=== PATIENT | male | born 1955 | race Caucasian/White ===

== ENCOUNTER 2020-10-10 18:36 | Emergency (ER) | payer MEDICARE ==
[2020-10-10] MEDS ORDERED: Ondansetron 4 MG Tab.DIS PO ONE (18:37)
--- NOTE | 2020-10-10 19:19 | CT ---
PROCEDURE INFORMATION: Exam: CT Head Without Contrast Exam date and time: 10/10/2020 7:08 PM Age: 64 years old Clinical indication: Other: Vomiting, mouth droop TECHNIQUE: Imaging protocol: Computed tomography of the head without contrast. Radiation optimization: All CT scans at this facility use at least one of these dose optimization techniques: automated exposure control; mA and/or kV adjustment per patient size (includes targeted exams where dose is matched to clinical indication); or iterative reconstruction. Other technique: STROKE PROTOCOL was implemented. COMPARISON: No relevant prior studies available. FINDINGS: Brain: There is moderate amount of scattered areas of hypoattenuation of the supratentorial white matter, most likely secondary to microvascular ischemic changes. No acute intracranial hemorrhage. Old infarcts centered in left caudate nucleus extending down into the lentiform nucleus. Likely associated Wallerian degenerative changes extending into the left midbrain and antony. Cerebral ventricles: No ventriculomegaly. Bones/joints: Unremarkable. No acute fracture. Paranasal sinuses: Visualized sinuses are unremarkable. No fluid levels. Mastoid air cells: Visualized mastoid air cells are well aerated. Soft tissues: Unremarkable. IMPRESSION: No acute intracranial process. ASSESSMENT: ASPECTS ([place] Stroke Program Early CT Score) is 10.
[2020-10-10 19:56] LABS: ANION GAP 13.8 mEq/L (7-13); CHLORIDE,CL 102 mmol/L (98-107); SODIUM,NA 138 mmol/L (136-145)
[2020-10-10 20:56] LABS: CORONAVIRUS COVID-19 NAA NEGATIVE (NEGATIVE)
--- NOTE | 2020-10-10 21:19 | EDM.PDOC ---
ED HPI GENERAL MEDICAL PROBLEM - General Chief Complaint: Neurological Problem Stated Complaint: LEFT SIDE OF FACE, NECK AND HAND. FALLING Time Seen by Provider: 10/10/20 20:50 Source of Information: Reports: Patient, Family History Limitations: Reports: No Limitations - History of Present Illness INITIAL COMMENTS - FREE TEXT/NARRATIVE: This 64 yo male patient was brought to the ED by his family due to left sided upper lip numbness, left arm numbness and coordination problems. The patient reports his symptoms started at 1100 today. The patient reports the numbness has been getting better, but he has been having more difficulties ambulating this evening. The patient did have a CVA in May (diagnosed in [place]), so he does have right sided facial droop and right lower extremity coordination difficulties. The patient normally walks with a walker due to the CVA in May. While family was getting the patient into the ED, the patient felt nauseated and vomited x1. The patient denies any recent falls or head trauma. Onset: Today Onset Date: 10/10/20 Onset Time: 11:00 Duration: Constant, Improving Location: Reports: Head, Upper Extremity, Left Quality: Reports: Other Severity: Moderate Improves with: Reports: None Worsens with: Reports: None Context: Reports: Other Associated Symptoms: Reports: No Other Symptoms - Related Data Allergies Allergy/AdvReac Type Severity Reaction Status Date / Time Tetanus Vaccines and Toxoid Allergy throat Verified 10/10/20 19:18 swelling Home Meds: Home Meds Aspirin 325 mg PO DAILY 10/10/20 [History] Losartan [Cozaar] 50 mg PO BID 10/10/20 [History] Pioglitazone [Actos] 15 mg PO DAILY 10/10/20 [History] amLODIPine Besylate [Amlodipine Besylate] 10 mg PO DAILY 10/10/20 [History] atorvaSTATin [Lipitor] 40 mg PO BEDTIME 10/10/20 [History] carvediloL [Carvedilol] 6.25 mg PO BID 10/10/20 [History] glipiZIDE [Glipizide ER] 5 mg PO DAILY 10/10/20 [History] Past Medical History Cardiovascular History: Reports: High Cholesterol, Hypertension Musculoskeletal History: Reports: Other (See Below) Other Musculoskeletal History: chronic knee problems, needs replacement Neurological History: Reports: CVA, Speech Problems, Other (See Below) Other Neuro History: 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 In physical therapy Endocrine/Metabolic History: Reports: Diabetes, Type II Social & Family History - Tobacco Use Tobacco Use Status *Q: Never Tobacco User Second Hand Smoke Exposure: No - Caffeine Use Caffeine Use: Reports: Soda - Recreational Drug Use Recreational Drug Use: No ED ROS GENERAL - Review of Systems Review Of Systems: Comprehensive ROS is negative, except as noted in HPI. ED EXAM, NEURO - Physical Exam Exam: See Below Exam Limited By: No Limitations General Appearance: Alert, WD/WN, Mild Distress Eye Exam: Bilateral Eye: EOMI, Normal Inspection, PERRL Ears: Normal External Exam, Normal Canal, Hearing Grossly Normal, Normal TMs Nose: Normal Inspection, Normal Mucosa, No Blood Throat/Mouth: Normal Inspection, Normal Lips, Normal Teeth, Normal Gums, Normal Oropharynx, Normal Voice, No Airway Compromise Head Exam: Atraumatic, Normocephalic, Other (Right sided facial droop (present since previous CVA in May)) Neck: Normal Inspection, Supple, Non-Tender, Full Range of Motion Respiratory/Chest: No Respiratory Distress, Lungs Clear, Normal Breath Sounds, No Accessory Muscle Use, Chest Non-Tender Cardiovascular: Normal Peripheral Pulses, Regular Rate, Rhythm, No Edema, No Ga llop, No JVD, No Murmur, No Rub GI/Abdominal: Normal Bowel Sounds, Soft, Non-Tender, No Organomegaly, No Distention, No Abnormal Bruit, No Mass (Male) Exam: Deferred Rectal (Males) Exam: Deferred Neurological: Alert, Normal Mood/Affect, Normal Dorsiflexion, CN II-XII Intact, Normal Plantar Flexion, Normal Gait, Normal Reflexes, No Motor/Sensory Deficits, Oriented x 3 Back Exam: Normal Inspection, Full Range of Motion, NT Extremities: Normal Inspection, Normal Range of Motion, Non-Tender, No Pedal Edema, Normal Capillary Refill, Other (increased difficulties ambulating ) Psychiatric: Normal Affect, Normal Mood Skin Exam: Warm, Dry, Intact, Normal Color, No Rash Course - Vital Signs Last Recorded V/S: Last Vital Signs Temp 35.7 C L 10/10/20 19:00 Pulse 80 10/10/20 19:00 Resp 11 L 10/10/20 19:00 BP 157/80 H 10/10/20 19:00 Pulse Ox 95 01/13/21 19:00 - Orders/Labs/Meds Orders: Active Orders 24 hr Category Date Time Status EKG Documentation Completion [RC] STAT Care 10/10/20 19:11 Active CULTURE BLOOD [BC] Stat Lab 10/10/20 19:18 Received UA RFX MADI AND CULT IF INDIC [URIN] Urgent Lab 10/10/20 19:11 Ordered Labs: Laboratory Tests 10/10/20 10/10/20 10/10/20 Range/Units 19:18 19:18 19:18 WBC 6.7 (5.0-10.0) 10^3/uL RBC 4.40 L (4.6-6.2) 10^6/uL Hgb 14.1 (14.0-18.0) g/dL Hct 38.4 L (40.0-54.0) % MCV 87.3 (80-100) fL MCH 32.0 (27.0-34.0) pg MCHC 36.7 H (33.0-35.0) g/dL Plt Count 196 (150-450) 10^3/uL Neut % (Auto) 76.4 H (42.2-75.2) % Lymph % (Auto) 16.2 L (20.5-50.1) % [place] % (Auto) 5.5 (2-8) % Eos % (Auto) 1.5 (1.0-3.0) % Baso % (Auto) 0.4 (0.0-1.0) % Sodium 138 (136-145) mmol/L Potassium 3.8 (3.5-5.1) mmol/L Chloride 102 (98-107) mmol/L Carbon Dioxide 26 (21-32) mmol/L Anion Gap 13.8 H (7-13) mEq/L BUN 25 H (7-18) mg/dL Creatinine 1.33 H (0.70-1.30) mg/dL Est Cr Clr Drug Dosing 60.78 mL/min Estimated GFR (MDRD) 54 BUN/Creatinine Ratio 18.8 (No establ ref range) Glucose 210 H (74-99) mg/dL Lactic Acid 1.1 (0.4-2.0) mmol/L Calcium 8.9 (8.5-10.1) mg/dL Total Bilirubin 1.0 (0.2-1.0) mg/dL AST 24 (15-37) U/L ALT 46 (16-63) U/L Alkaline Phosphatase 56 (46-116) U/L Troponin I < 0.017 (0.000-0.056) ng/mL Total Protein 7.5 (6.4-8.2) g/dL Albumin 4.0 (3.4-5.0) g/dL Globulin 3.5 Albumin/Globulin Ratio 1.1 Influenza Type A RNA (NEGATIVE) Influenza Type B RNA (NEGATIVE) SARS-CoV-2 RNA (MANUEL) (NEGATIVE) 10/10/20 Range/Units 20:05 WBC (5.0-10.0) 10^3/uL RBC (4.6-6.2) 10^6/uL Hgb (14.0-18.0) g/dL Hct (40.0-54.0) % MCV (80-100) fL MCH (27.0-34.0) pg MCHC (33.0-35.0) g/dL Plt Count (150-450) 10^3/uL Neut % (Auto) (42.2-75.2) % Lymph % (Auto) (20.5-50.1) % [place] % (Auto) (2-8) % Eos % (Auto) (1.0-3.0) % Baso % (Auto) (0.0-1.0) % Sodium (136-145) mmol/L Potassium (3.5-5.1) mmol/L Chloride (98-107) mmol/L Carbon Dioxide (21-32) mmol/L Anion Gap (7-13) mEq/L BUN (7-18) mg/dL Creatinine (0.70-1.30) mg/dL Est Cr Clr Drug Dosing mL/min Estimated GFR (MDRD) BUN/Creatinine Ratio (No establ ref range) Glucose (74-99) mg/dL Lactic Acid (0.4-2.0) mmol/L Calcium (8.5-10.1) mg/dL Total Bilirubin (0.2-1.0) mg/dL AST (15-37) U/L ALT (16-63) U/L Alkaline Phosphatase (46-116) U/L Troponin I (0.000-0.056) ng/mL Total Protein (6.4-8.2) g/dL Albumin (3.4-5.0) g/dL Globulin Albumin/Globulin Ratio Influenza Type A RNA Negative (NEGATIVE) Influenza Type B RNA Negative (NEGATIVE) SARS-CoV-2 RNA (MANUEL) Negative (NEGATIVE) Meds: Medications Discontinued Medications Generic Name Dose Route Start Last Admin Trade Name Vitorq PRN Reason Stop Dose Admin Iopamidol 100 ml 10/10/20 21:10 Isovue-300 (61%) IVPUSH 10/10/20 21:11 ONETIME ONE - Re-Assessments/Exams Free Text/Narrative Re-Assessment/Exam: 10/10/20 22:14 The patient and his daughter were advised of the examination, lab and CT results during the visit. The patient declined transfer to neurology or admission to the hospital for continued evaluation. Departure - Departure Time of Disposition: 22:18 Disposition: Home, Self-Care 01 Condition: Fair Clinical Impression: Left-sided weakness - Discharge Information *PRESCRIPTION DRUG MONITORING PROGRAM REVIEWED*: Not Applicable *COPY OF PRESCRIPTION DRUG MONITORING REPORT IN PATIENT RONNIE: Not Applicable Forms: ED Department Discharge Care Plan Goals: The patient and his daughter were advised of the examination, lab and CT results during the visit. The patient declined transfer to neurology or admission to the hospital for continued evaluation. The patient was discharged with Zofran ODT (4 mg) #4 to take 1 by mouth every 6 hours as needed for nausea. If the patient has any additional symptoms or concerns, the patient should either return to the emergency department or visit his primary care facility. Sepsis Event Note (ED) - Evaluation Sepsis Screening Result: No Definite Risk - Focused Exam Vital Signs: Vital Signs Temp Pulse Resp BP Pulse Ox 10/10/20 19:00 35.7 C L 80 11 L 157/80 H 95 - My Orders Last 24 Hours: My Active Orders 10/10/20 19:11 EKG Documentation Completion [RC] STAT UA RFX MADI AND CULT IF INDIC [URIN] Urgent 10/10/20 19:18 CULTURE BLOOD [BC] Stat - Assessment/Plan Last 24 Hours: My Active Orders 10/10/20 19:11 EKG Documentation Completion [RC] STAT UA RFX MADI AND CULT IF INDIC [URIN] Urgent 10/10/20 19:18 CULTURE BLOOD [BC] Stat
[2020-10-10] MEDS: Iopamidol 612 MG/ML 100 ML Bottle IVPUSH ONE (21:20)
--- NOTE | 2020-10-10 22:09 | CT ---
PROCEDURE INFORMATION: Exam: CT Head With Contrast Exam date and time: 10/10/2020 9:20 PM Age: 64 years old Clinical indication: Other: Left sided weakness (balance and coordination); Additional info: Left sided weakness (balance and coordination) TECHNIQUE: Imaging protocol: Computed tomography of the head with intravenous contrast. Radiation optimization: All CT scans at this facility use at least one of these dose optimization techniques: automated exposure control; mA and/or kV adjustment per patient size (includes targeted exams where dose is matched to clinical indication); or iterative reconstruction. Contrast material: ISOVUE 300; Contrast volume: 50 ml; Contrast route: INTRAVENOUS (IV); COMPARISON: CT Head wo Cont 10/10/2020 7:08 PM FINDINGS: Brain: Chronic left basal ganglia infarct or hemorrhage. There is no intracranial mass effect or midline shift. There is no sign of acute intracranial hemorrhage or cerebral edema. Cerebral ventricles: The ventricles and cortical sulci are normal in caliber. Bones/joints: Skull base and overlying calvarium are intact. No lytic or osteosclerotic lesions. Paranasal sinuses: Visualized sinuses are unremarkable. No fluid levels. Mastoid air cells: Visualized mastoid air cells are well aerated. Soft tissues: Unremarkable. IMPRESSION: 1. No acute intracranial abnormality. 2. Chronic left basal ganglia infarct or hemorrhage. 3. No significant interval change when compared to the CT Head wo Cont 10/10/2020 7:08 PM.
[2020-10-10] MEDS ORDERED: Ondansetron 4 MG Tab.DIS ONE (22:22)
[2020-10-17] MEDS: Iopamidol 612 MG/ML 100 ML Bottle IVPUSH ONE (08:51)
== END 2020-10-10 22:30 | disposition home or self-care (01) ==
LOC: DL.ED 18:36
DX: I69.354 Hemiplegia and hemiparesis following cerebral infarction affecting left non-dominant side (principal); I10 Essential (primary) hypertension; E78.00 Pure hypercholesterolemia, unspecified; E11.9 Type 2 diabetes mellitus without complications; Z20.822 Contact with and (suspected) exposure to COVID-19; Z88.7 Allergy status to serum and vaccine; Z79.84 Long term (current) use of oral hypoglycemic drugs; Z79.899 Other long term (current) drug therapy
CPT/HCPCS: 0240U; 36415; 70450; 70460; 80053; 83605; 84484; 85025; 87040; 93005; 99283; 99285-25; A9270-GY; Q9967

== ENCOUNTER 2020-10-11 16:39 | Emergency (ER) | payer MEDICARE ==
--- NOTE | 2020-10-11 15:59 | EDM.PDOC ---
ED HPI GENERAL MEDICAL PROBLEM - General Stated Complaint: E.R. Time Seen by Provider: 10/11/20 16:10 Source of Information: Reports: Patient, Old Records, RN, RN Notes Reviewed History Limitations: Reports: Altered Mental Status - History of Present Illness INITIAL COMMENTS - FREE TEXT/NARRATIVE: Patient presents to the ED from [facility] at the request of his PCP, Joya Mcclelland for left-sided weakness and unsteady gait. Per report, the patient was evaluated at this facility last evening for stroke r/o related to similar symptoms. CT of head w and w/o performed which were unremarkable for acute processes but did reveal some chronic abnormalities, including chronic left basal ganglia infarct or hemorrhage. [facility] was notified and Neurology agreed to see the patient post-transfer but the patient declined. Today the patient states the pain has extended from his left hand into his left forearm; the numbness persists to his left upper lip but has not extended into his face. He does attest to a fall in the shower earlier today due to weakness. He states he slipped and fell back against the wall, he did not experience a LOC and did not hit his head. His brother, Thom, is present at the bedside and notes the patient has been increasingly confused throughout the day. The patient denies fever, shaking chills, vision changes, headache, chest pain, shortness of breath, palpitations, nausea, vomiting, or diarrhea. He has not taken any PRN medications for the aforementioned symptoms. The patient is agreeable to transfer to neurology, if warranted, today. - Related Data Allergies Allergy/AdvReac Type Severity Reaction Status Date / Time Tetanus Vaccines and Toxoid Allergy throat Verified 10/11/20 16:05 swelling Home Meds: Home Meds Aspirin 325 mg PO DAILY 10/10/20 [History] Losartan [Cozaar] 50 mg PO BID 10/10/20 [History] Pioglitazone [Actos] 15 mg PO DAILY 10/10/20 [History] amLODIPine Besylate [Amlodipine Besylate] 10 mg PO DAILY 10/10/20 [History] atorvaSTATin [Lipitor] 40 mg PO BEDTIME 10/10/20 [History] carvediloL [Carvedilol] 6.25 mg PO BID 10/10/20 [History] glipiZIDE [Glipizide ER] 5 mg PO DAILY 10/10/20 [History] Past Medical History Cardiovascular History: Reports: High Cholesterol, Hypertension Musculoskeletal History: Reports: Other (See Below) Other Musculoskeletal History: chronic knee problems, needs replacement Neurological History: Reports: CVA, Speech Problems, Other (See Below) Other Neuro History: 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 In physical therapy Endocrine/Metabolic History: Reports: Diabetes, Type II Social & Family History - Caffeine Use Caffeine Use: Reports: Soda ED ROS GENERAL - Review of Systems Review Of Systems: Comprehensive ROS is negative, except as noted in HPI. ED EXAM, NEURO - Physical Exam Exam: See Below Exam Limited By: No Limitations General Appearance: Alert, No Apparent Distress Eye Exam: Bilateral Eye: EOMI, Normal Inspection, PERRL (3mm) Throat/Mouth: Normal Inspection, Normal Lips, Normal Voice, No Airway Compromise, Other (Poor dentition) Head Exam: Atraumatic, Normocephalic. No: Facial Swelling, Facial Tenderness, Sinus Tenderness Neck: Normal Inspection, Supple, Non-Tender, Limited Range of Motion, Tender Lateral. No: Lymphadenopathy (L), Lymphadenopathy (R), Tender Midline, Thyromegaly Respiratory/Chest: No Respiratory Distress, No Accessory Muscle Use, Chest Non- Tender, Decreased Breath Sounds, Rales. No: Crackles, Rhonchi, Wheezing, Stridor, Pleural Rub Cardiovascular: Normal Peripheral Pulses, Regular Rate, Rhythm, No Edema, No Gallop, No JVD, No Rub, Systolic Murmur (2/6, loudest over the pulmonic area) GI/Abdominal: Normal Bowel Sounds, Soft, Non-Tender, No Distention, No Mass, Pelvis Stable (Male) Exam: Deferred Rectal (Males) Exam: Deferred Neurological: Alert, Normal Mood/Affect, Normal Dorsiflexion, Normal Plantar Flexion, No Motor/Sensory Deficits, Oriented x 3, Straight Leg Raise (L), Straight Leg Raise (R). No: Abnormal Sensation, Abnormal Light Touch, Abnormal Motor, Abn 2 Pt Discrimination, Saddle Anesthesia, Difficulty Walking Back Exam: Normal Inspection, Full Range of Motion. No: CVA Tenderness (L), CVA Tenderness (R) Extremities: Normal Inspection, Normal Range of Motion, Non-Tender, No Pedal Edema, Normal Capillary Refill Psychiatric: Normal Affect, Normal Mood Skin Exam: Warm, Dry, Intact, Normal Color, No Rash. No: Ecchymosis, Erythema, Jaundice, Mottled, Pallor, Petechiae Course - Vital Signs Last Recorded V/S: Last Vital Signs Temp 98.1 F 10/11/20 16:00 Pulse 80 10/11/20 16:00 Resp 17 10/11/20 16:00 BP 159/68 H 10/11/20 16:00 Pulse Ox 99 10/11/20 16:00 - Orders/Labs/Meds Orders: Active Orders 24 hr Category Date Time Status EKG Documentation Completion [RC] STAT Care 10/11/20 15:59 Active Labs: Laboratory Tests 10/11/20 10/11/20 10/11/20 Range/Units 15:57 15:57 15:57 WBC 10.6 H (5.0-10.0) 10^3/uL RBC 4.11 L (4.6-6.2) 10^6/uL Hgb 13.1 L (14.0-18.0) g/dL Hct 36.5 L (40.0-54.0) % MCV 88.8 (80-100) fL MCH 31.9 (27.0-34.0) pg MCHC 35.9 H (33.0-35.0) g/dL Plt Count 206 (150-450) 10^3/uL Neut % (Auto) 79.4 H (42.2-75.2) % Lymph % (Auto) 13.1 L (20.5-50.1) % [place] % (Auto) 6.5 (2-8) % Eos % (Auto) 0.1 L (1.0-3.0) % Baso % (Auto) 0.9 (0.0-1.0) % PT 11.4 (9.0-12.0) SEC INR 1.2 (0.9-1.2) APTT 22.5 (22.0-34.0) SEC Sodium 137 (136-145) mmol/L Potassium 3.7 (3.5-5.1) mmol/L Chloride 101 (98-107) mmol/L Carbon Dioxide 29 (21-32) mmol/L Anion Gap 10.7 (7-13) mEq/L BUN 31 H (7-18) mg/dL Creatinine 1.50 H (0.70-1.30) mg/dL Est Cr Clr Drug Dosing 50.69 mL/min Estimated GFR (MDRD) 47 BUN/Creatinine Ratio 20.7 (No establ ref range) Glucose 166 H (74-99) mg/dL Lactic Acid (0.4-2.0) mmol/L Calcium 8.6 (8.5-10.1) mg/dL Magnesium 1.9 (1.8-2.4) mg/dL Total Bilirubin 1.3 H (0.2-1.0) mg/dL AST 19 (15-37) U/L ALT 40 (16-63) U/L Alkaline Phosphatase 53 (46-116) U/L Troponin I < 0.017 (0.000-0.056) ng/mL B-Natriuretic Peptide 9 (0-100) pg/ml Total Protein 7.5 (6.4-8.2) g/dL Albumin 4.0 (3.4-5.0) g/dL Globulin 3.5 Albumin/Globulin Ratio 1.1 Vitamin B12 421 (193-986) pg/mL TSH, Ultra Sensitive 0.86 (0.36-3.74) uIU/mL Urine Color (YELLOW) Urine Appearance (CLEAR) Urine pH (5.0-9.0) Ur Specific [place] (1.005-1.030) Urine Protein (NEGATIVE) Urine Glucose (UA) (NEGATIVE) Urine Ketones (NEGATIVE) Urine Occult Blood (NEGATIVE) Urine Nitrite (NEGATIVE) Urine Bilirubin (NEGATIVE) Urine Urobilinogen (0.2-1.0) mg/dL Ur Leukocyte Esterase (NEGATIVE) Urine Opiates Screen (NEGATIVE) Ur Oxycodone Screen (NEGATIVE) Urine Methadone Screen (NEGATIVE) Ur Barbiturates Screen (NEGATIVE) U Tricyclic Antidepress (NEGATIVE) Ur Phencyclidine Scrn (NEGATIVE) Ur Amphetamine Screen (NEGATIVE) U Methamphetamines Scrn (NEGATIVE) Urine MDMA Screen (NEGATIVE) U Benzodiazepines Scrn (NEGATIVE) Urine Cocaine Screen (NEGATIVE) U Marijuana (THC) Screen (NEGATIVE) Ethyl Alcohol < 3 (0) mg/dL 10/11/20 10/11/20 10/11/20 Range/Units 15:57 16:21 16:21 WBC (5.0-10.0) 10^3/uL RBC (4.6-6.2) 10^6/uL Hgb (14.0-18.0) g/dL Hct (40.0-54.0) % MCV (80-100) fL MCH (27.0-34.0) pg MCHC (33.0-35.0) g/dL Plt Count (150-450) 10^3/uL Neut % (Auto) (42.2-75.2) % Lymph % (Auto) (20.5-50.1) % [place] % (Auto) (2-8) % Eos % (Auto) (1.0-3.0) % Baso % (Auto) (0.0-1.0) % PT (9.0-12.0) SEC INR (0.9-1.2) APTT (22.0-34.0) SEC Sodium (136-145) mmol/L Potassium (3.5-5.1) mmol/L Chloride (98-107) mmol/L Carbon Dioxide (21-32) mmol/L Anion Gap (7-13) mEq/L BUN (7-18) mg/dL Creatinine (0.70-1.30) mg/dL Est Cr Clr Drug Dosing mL/min Estimated GFR (MDRD) BUN/Creatinine Ratio (No establ ref range) Glucose (74-99) mg/dL Lactic Acid 1.8 (0.4-2.0) mmol/L Calcium (8.5-10.1) mg/dL Magnesium (1.8-2.4) mg/dL Total Bilirubin (0.2-1.0) mg/dL AST (15-37) U/L ALT (16-63) U/L Alkaline Phosphatase (46-116) U/L Troponin I (0.000-0.056) ng/mL B-Natriuretic Peptide (0-100) pg/ml Total Protein (6.4-8.2) g/dL Albumin (3.4-5.0) g/dL Globulin Albumin/Globulin Ratio Vitamin B12 (193-986) pg/mL TSH, Ultra Sensitive (0.36-3.74) uIU/mL Urine Color Yellow (YELLOW) Urine Appearance Slightly cloudy (CLEAR) Urine pH 5.5 (5.0-9.0) Ur Specific [place] 1.020 (1.005-1.030) Urine Protein Negative (NEGATIVE) Urine Glucose (UA) Negative (NEGATIVE) Urine Ketones Negative (NEGATIVE) Urine Occult Blood Negative (NEGATIVE) Urine Nitrite Negative (NEGATIVE) Urine Bilirubin Negative (NEGATIVE) Urine Urobilinogen 0.2 (0.2-1.0) mg/dL Ur Leukocyte Esterase Negative (NEGATIVE) Urine Opiates Screen Negative (NEGATIVE) Ur Oxycodone Screen Negative (NEGATIVE) Urine Methadone Screen Negative (NEGATIVE) Ur Barbiturates Screen Negative (NEGATIVE) U Tricyclic Antidepress Negative (NEGATIVE) Ur Phencyclidine Scrn Negative (NEGATIVE) Ur Amphetamine Screen Negative (NEGATIVE) U Methamphetamines Scrn Negative (NEGATIVE) Urine MDMA Screen Negative (NEGATIVE) U Benzodiazepines Scrn Negative (NEGATIVE) Urine Cocaine Screen Negative (NEGATIVE) U Marijuana (THC) Screen Negative (NEGATIVE) Ethyl Alcohol (0) mg/dL - Re-Assessments/Exams Free Text/Narrative Re-Assessment/Exam: 10/11/20 CBC and CMP unremarkable for acute processes. Tox and ETOH negative. TSH and Vitamin B12 WNL. Case discussed with Dr. Bush, neurologist at [facility] in [place] who states it is likely patient had a CVA and he would be willing to accept the patient for transfer. Case additionally discussed with Dr. Archer who agreed to accept patient for transfer. Plan of care discussed with patient and his brother Thom, both verbalized understanding and agreement. Departure - Departure Time of Disposition: 18:00 Disposition: DC/Tfer to Acute Hospital 02 Condition: Good Clinical Impression: Left arm numbness, Left arm weakness CVA (cerebral vascular accident) Qualifiers: CVA mechanism: unspecified Qualified Code(s): I63.9 - Cerebral infarction, unspecified - Discharge Information Forms: Interfacility Transfer [facility] Sepsis Event Note (ED) - Focused Exam Vital Signs: Vital Signs Temp Pulse Resp BP Pulse Ox 10/11/20 16:00 98.1 F 80 17 159/68 H 99 - My Orders Last 24 Hours: My Active Orders 10/11/20 15:59 EKG Documentation Completion [RC] STAT - Assessment/Plan Last 24 Hours: My Active Orders 10/11/20 15:59 EKG Documentation Completion [RC] STAT
[2020-10-11 16:29] LABS: PTT,PARTIAL THROMBOPLSTIN TIME 22.5 SEC (22.0-34.0)
[2020-10-11 16:46] LABS: ANION GAP 10.7 mEq/L (7-13); CHLORIDE,CL 101 mmol/L (98-107); SODIUM,NA 137 mmol/L (136-145)
== END 2020-10-11 18:00 ==
LOC: DL.ED 16:39
DX: I63.9 Cerebral infarction, unspecified (principal); E78.00 Pure hypercholesterolemia, unspecified; I10 Essential (primary) hypertension; Z86.73 Personal history of transient ischemic attack (TIA), and cerebral infarction without residual deficits; E11.9 Type 2 diabetes mellitus without complications; Z79.84 Long term (current) use of oral hypoglycemic drugs; Z79.899 Other long term (current) drug therapy; Z79.82 Long term (current) use of aspirin; Z88.7 Allergy status to serum and vaccine
CPT/HCPCS: 36415; 80053; 80305-QW; 80307; 81003; 82607; 83605; 83735; 83880; 84443; 84484; 85025; 85610; 85730; 93005; 99285-25

== ENCOUNTER 2021-01-26 06:36 | Emergency (ER) | payer MEDICARE ==
--- NOTE | 2021-01-26 07:03 | EDM.PDOC ---
ED HPI GENERAL MEDICAL PROBLEM - General Chief Complaint: General Stated Complaint: FELL / RIBS HURT Time Seen by Provider: 01/26/21 07:03 Source of Information: Reports: Patient, Old Records, RN, RN Notes Reviewed History Limitations: Reports: No Limitations - History of Present Illness INITIAL COMMENTS - FREE TEXT/NARRATIVE: Pt presents to ER with c/o right posterior chest wall pain and Rt shoulder pain sustained from a ground level fall at [facility] on 01/24/21. Pt denies head injury, neck pain, or any other injury. He had some left over Vicodin which helped, but only had 4 tablets. Pt rates the pain 8/10. Nothing alleviates the pain. Movement and breathing aggravates the pain. Onset: Sudden Onset Date: 01/24/21 Duration: Constant Location: Reports: Chest, Upper Extremity, Right Quality: Reports: Ache Severity: Severe Improves with: Reports: Rest Worsens with: Reports: Breathing, Movement Right Pain Score (Numeric/FACES): 8 - Related Data Allergies Allergy/AdvReac Type Severity Reaction Status Date / Time Tetanus Vaccines and Toxoid Allergy throat Verified 01/26/21 06:59 swelling Home Meds: Home Meds Losartan [Cozaar] 50 mg PO BID 10/10/20 [History] Pioglitazone [Actos] 15 mg PO DAILY 10/10/20 [History] amLODIPine Besylate [Amlodipine Besylate] 10 mg PO DAILY 10/10/20 [History] atorvaSTATin [Lipitor] 40 mg PO BEDTIME 10/10/20 [History] carvediloL [Carvedilol] 6.25 mg PO BID 10/10/20 [History] Clopidogrel [Plavix] 75 mg PO DAILY 01/26/21 [History] Past Medical History HEENT History: Reports: Hard of Hearing, Impaired Vision Cardiovascular History: Reports: High Cholesterol, Hypertension Musculoskeletal History: Reports: Other (See Below) Other Musculoskeletal History: chronic knee problems, needs replacement Neurological History: Reports: CVA, Speech Problems, Other (See Below) Other Neuro History: 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 In physical therapy Endocrine/Metabolic History: Reports: Diabetes, Type II Social & Family History - Family History Family Medical History: No Pertinent Family History - Caffeine Use Caffeine Use: Reports: Coffee - Living Situation & Occupation Living situation: Reports: with Family Occupation: Disabled ED ROS GENERAL - Review of Systems Review Of Systems: Comprehensive ROS is negative, except as noted in HPI. ED EXAM, GENERAL - Physical Exam Exam: See Below Exam Limited By: No Limitations General Appearance: Alert, WD/WN, No Apparent Distress Eye Exam: Bilateral Eye: Normal Inspection Nose: Normal Inspection, No Blood Throat/Mouth: Normal Voice, No Airway Compromise Head: Atraumatic, Normocephalic Neck: Normal Inspection, Supple, Non-Tender, Full Range of Motion Respiratory/Chest: No Respiratory Distress, Lungs Clear, No Accessory Muscle U se, Decreased Breath Sounds, Other (Right posterior chest wall abrasion and contusion with tenderness). No: Crackles, Rales, Rhonchi, Wheezing Cardiovascular: Normal Peripheral Pulses, Regular Rate, Rhythm GI/Abdominal: Normal Bowel Sounds, Soft, Non-Tender, No Organomegaly, No Distention, No Abnormal Bruit, No Mass Back Exam: Decreased Range of Motion. No: CVA Tenderness (L), CVA Tenderness (R), Vertebral Tenderness Extremities: Normal Inspection, Normal Range of Motion, Non-Tender, Normal Ca pillary Refill, No Pedal Edema Neurological: Alert, Oriented, CN II-XII Intact, Normal Cognition, Normal Gait, No Motor/Sensory Deficits Psychiatric: Normal Affect, Normal Mood Skin Exam: Warm, Dry, No Rash Course - Vital Signs Last Recorded V/S: Last Vital Signs Temp 97.1 F 01/26/21 06:53 Pulse 94 01/26/21 06:53 Resp 20 01/26/21 06:53 BP 154/78 H 01/26/21 06:53 Pulse Ox 96 01/26/21 06:53 - Orders/Labs/Meds Orders: Active Orders 24 hr Category Date Time Status Incentive Spirometry [RT Incentive Spirometry] [RC] Care 01/26/21 08:39 Ordered ASDIRECTED Meds: Medications Discontinued Medications Generic Name Dose Route Start Last Admin Trade Name Freq PRN Reason Stop Dose Admin Hydrocodone Bitart/Acetaminophen 1 tab 01/26/21 07:13 01/26/21 07:21 Acetaminophen/Hydrocodone 325-10 Mg Tab PO 01/26/21 07:14 1 tab ONETIME ONE Administration - Radiology Interpretation Free Text/Narrative:: [facility] Final Radiology Report Call: [phone] assistance Online chat: [email or web address] Name: ROBB COOLEY Age: 65Years M Date: 01/26/2021 SSN: -- : [id number] Study: CR RIBS 2V W CHEST RT Requesting Physician: STAR CROWDER Images: 3 Addl Studies: Provided Clinical History: Fall, Rt chest wall pain Contrast: Contrast Medium: Contrast Amount: Contrast Method: Page 1 of 2 PROCEDURE INFORMATION: Exam: XR Right Ribs with PA Chest Exam date and time: 01/26/2021 7:43 AM Age: 65 years old Clinical indication: Injury or trauma; Fall; Chest wall; Blunt trauma; Additional info: Fall, RT chest wall pain TECHNIQUE: Imaging protocol: XR Right ribs with PA chest. Views: 3 views COMPARISON: No relevant prior studies available. FINDINGS: Lungs: Linear atelectasis at the right lung base. Pleural spaces: There is a blunted right costophrenic angle consistent with small effusion or pleural scarring. Heart/Mediastinum: A cardiac rhythm record device projects over the cardiac silhouette. Bones/joints: Minimally displaced fracture involving the posterior aspect of the right 10th rib. Organs: Surgical clips are noted in the right upper quadrant most likely due to prior cholecystectomy. IMPRESSION: 1. Linear atelectasis at the right lung base. 2. Minimally displaced fracture involving the posterior aspect of the right 10th rib. Thank you for allowing us to participate in the care of your patient. Dictated and Authenticated by: Juan Herrera MD [facility] Final Radiology Report Call: [phone] assistance Online chat: [email or web address] Name: ROBB COOLEY Age: 65Years M Date: 01/26/2021 SSN: -- : [id number] Study: CR SHOULDER COMP RT Requesting Physician: STAR CROWDER Images: 3 Addl Studies: Provided Clinical History: Fall, Rt shoulder pain Contrast: Contrast Medium: Contrast Amount: Contrast Method: CONFIDENTIALITY STATEMENT This report is intended only for use by the referring physician, and only in accordance with law. If you received this in error, call [phone]. Page 1 of 1 PROCEDURE INFORMATION: Exam: XR Right Shoulder Exam date and time: 01/26/2021 7:55 AM Age: 65 years old Clinical indication: Injury or trauma; Fall; Blunt trauma (contusions or hematomas); Shoulder; Right; Additional info: Fall, RT shoulder pain TECHNIQUE: Imaging protocol: XR Right shoulder. Views: 2 or more views. COMPARISON: No relevant prior studies available. FINDINGS: Bones/joints: Mild degenerative changes at the acromioclavicular joint space. There are mild/moderate degenerative changes at the greater tuberosity as manifested by sclerosis and cystic change. Mild narrowing of the right glenohumeral joint space. There is no evidence of acute displaced fracture or dislocation. Soft tissues: Normal. IMPRESSION: No acute findings. Thank you for allowing us to participate in the care of your patient. Dictated and Authenticated by: Juan Herrera MD 01/26/2021 8:23 AM Central Time ([place] & [place]) Departure - Departure Time of Disposition: 08:38 Disposition: Home, Self-Care 01 Condition: Good Clinical Impression: Closed fracture of rib of right side Qualifiers: Encounter type: initial encounter Rib fracture type: single rib Qualified Code(s): S22.31XA - Fracture of one rib, right side, initial encounter for closed fracture - Discharge Information *PRESCRIPTION DRUG MONITORING PROGRAM REVIEWED*: No *COPY OF PRESCRIPTION DRUG MONITORING REPORT IN PATIENT RONNIE: No Instructions: Rib Fracture, How to Use an Incentive Spirometer Forms: ED Department Discharge Additional Instructions: Rx: Hydrocodone APAP 5mg/325mg Use Colace, or prunes as needed to prevent constipation while taking the pain medication. Use incentive spirometer once every hour while awake until rib pain resolves. Follow up in clinic next week for recheck. Sepsis Event Note (ED) - Evaluation Sepsis Screening Result: No Definite Risk - Focused Exam Vital Signs: Vital Signs Temp Pulse Resp BP Pulse Ox 01/26/21 06:53 97.1 F 94 20 154/78 H 96 01/26/21 06:51 97.1 F - My Orders Last 24 Hours: My Active Orders 01/26/21 08:39 Incentive Spirometry [RT Incentive Spirometry] [RC] ASDIRECTED - Assessment/Plan Last 24 Hours: My Active Orders 01/26/21 08:39 Incentive Spirometry [RT Incentive Spirometry] [RC] ASDIRECTED
[2021-01-26] MEDS ORDERED: Acetaminophen/HYDROcodone 325-10 MG Tab PO ONE (07:13)
--- NOTE | 2021-01-26 08:23 | CR ---
PROCEDURE INFORMATION: Exam: XR Right Shoulder Exam date and time: 01/26/2021 7:55 AM Age: 65 years old Clinical indication: Injury or trauma; Fall; Blunt trauma (contusions or hematomas); Shoulder; Right; Additional info: Fall, RT shoulder pain TECHNIQUE: Imaging protocol: XR Right shoulder. Views: 2 or more views. COMPARISON: No relevant prior studies available. FINDINGS: Bones/joints: Mild degenerative changes at the acromioclavicular joint space. There are mild/moderate degenerative changes at the greater tuberosity as manifested by sclerosis and cystic change. Mild narrowing of the right glenohumeral joint space. There is no evidence of acute displaced fracture or dislocation. Soft tissues: Normal. IMPRESSION: No acute findings.
--- NOTE | 2021-01-26 08:23 | CR ---
PROCEDURE INFORMATION: Exam: XR Right Ribs with PA Chest Exam date and time: 01/26/2021 7:43 AM Age: 65 years old Clinical indication: Injury or trauma; Fall; Chest wall; Blunt trauma; Additional info: Fall, RT chest wall pain TECHNIQUE: Imaging protocol: XR Right ribs with PA chest. Views: 3 views COMPARISON: No relevant prior studies available. FINDINGS: Lungs: Linear atelectasis at the right lung base. Pleural spaces: There is a blunted right costophrenic angle consistent with small effusion or pleural scarring. Heart/Mediastinum: A cardiac rhythm record device projects over the cardiac silhouette. Bones/joints: Minimally displaced fracture involving the posterior aspect of the right 10th rib. Organs: Surgical clips are noted in the right upper quadrant most likely due to prior cholecystectomy. IMPRESSION: 1. Linear atelectasis at the right lung base. 2. Minimally displaced fracture involving the posterior aspect of the right 10th rib.
== END 2021-01-26 08:51 | disposition home or self-care (01) ==
LOC: DL.ED 06:36
DX: S22.31XA Fracture of one rib, right side, initial encounter for closed fracture (principal); E78.00 Pure hypercholesterolemia, unspecified; I10 Essential (primary) hypertension; E11.9 Type 2 diabetes mellitus without complications; Z79.02 Long term (current) use of antithrombotics/antiplatelets; Z79.84 Long term (current) use of oral hypoglycemic drugs; Z79.899 Other long term (current) drug therapy; Z86.73 Personal history of transient ischemic attack (TIA), and cerebral infarction without residual deficits; Z88.7 Allergy status to serum and vaccine; W18.30XA Fall on same level, unspecified, initial encounter
CPT/HCPCS: 71101; 73030; 99283; A9270

== ENCOUNTER 2021-04-27 08:21 | Emergency (ER) | payer MEDICARE ==
[2021-04-27] MEDS ORDERED: traMADol 50 MG Tab PO ONE (09:15)
--- NOTE | 2021-04-27 09:18 | EDM.PDOC ---
ED HPI GENERAL MEDICAL PROBLEM - General Chief Complaint: Back Pain or Injury Stated Complaint: [id number] LOWER LEFT BACK PAIN Time Seen by Provider: 04/27/21 09:00 Source of Information: Reports: Patient, RN, RN Notes Reviewed History Limitations: Reports: No Limitations - History of Present Illness INITIAL COMMENTS - FREE TEXT/NARRATIVE: Robb is a 65 y/o male with history of multiple CVA who presents to the ED via personal vehicle with brother for complaints of left lower back pain. The patient states the pain began abruptly yesterday and has maintained in that time. He states the pain originates in the left back and radiates down into the hip and posterior upper leg. He characterizes the pain as sharp in nature. He denies fever, shaking chills, abdominal pain, saddle paraesthesia, incontinence of bladder/bowel, inability to void, dysuria, or hematuria. He has taken no medications for this pain. left flank/back Pain Score (Numeric/FACES): 2 - Related Data Allergies Allergy/AdvReac Type Severity Reaction Status Date / Time Tetanus Vaccines and Toxoid Allergy throat Verified 04/27/21 08:56 swelling Home Meds: Home Meds Losartan [Cozaar] 50 mg PO BID 10/10/20 [History] Pioglitazone [Actos] 15 mg PO DAILY 10/10/20 [History] amLODIPine Besylate [Amlodipine Besylate] 10 mg PO DAILY 10/10/20 [History] atorvaSTATin [Lipitor] 40 mg PO BEDTIME 10/10/20 [History] carvediloL [Carvedilol] 6.25 mg PO BID 10/10/20 [History] Clopidogrel [Plavix] 75 mg PO DAILY 01/26/21 [History] Warfarin Sodium [Jantoven] 5 mg PO .TH 04/27/21 [History] Warfarin Sodium [Jantoven] 7.5 mg PO .ALBERTO,MO,TU,WE,FR,SA 04/27/21 [History] metFORMIN HCl [Metformin HCl] 1,000 mg PO BID 04/27/21 [History] Past Medical History HEENT History: Reports: Hard of Hearing, Impaired Vision Other HEENT History: wears glasses Cardiovascular History: Reports: High Cholesterol, Hypertension Respiratory History: Reports: None Genitourinary History: Reports: None Musculoskeletal History: Reports: Other (See Below) Other Musculoskeletal History: chronic knee problems, needs replacement Neurological History: Reports: CVA, Speech Problems, Other (See Below) Other Neuro History: 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 In physical therapy Psychiatric History: Reports: None Endocrine/Metabolic History: Reports: Diabetes, Type II Hematologic History: Reports: None Immunologic History: Reports: None Oncologic (Cancer) History: Reports: None Dermatologic History: Reports: None - Infectious Disease History Infectious Disease History: Reports: Chicken Pox, Measles, Mumps - Past Surgical History Head Surgeries/Procedures: Reports: None GI Surgical History: Reports: Cholecystectomy Social & Family History - Family History Family Medical History: No Pertinent Family History - Caffeine Use Caffeine Use: Reports: Soda - Living Situation & Occupation Living situation: Reports: with Family Occupation: Disabled ED ROS GENERAL - Review of Systems Review Of Systems: Comprehensive ROS is negative, except as noted in HPI. ED EXAM,LOWER BACK PAIN/INJURY - Physical Exam Exam: See Below Exam Limited By: Language Barrier (KOI) General Appearance: Alert, No Apparent Distress Eye Exam: Bilateral Eye: EOMI, Normal Inspection, PERRL (3mm) Ears: Normal External Exam, Hearing Loss Nose: Normal Inspection, Normal Mucosa, No Blood Throat/Mouth: Normal Inspection, Normal Oropharynx, Normal Voice, No Airway Compromise Head: Atraumatic, Normocephalic Neck: Normal Inspection, Supple, Non-Tender, Full Range of Motion Respiratory/Chest: No Respiratory Distress, Lungs Clear, Normal Breath Sounds, No Accessory Muscle Use, Chest Non-Tender Cardiovascular: Normal Peripheral Pulses, Regular Rate, Rhythm, No Edema, No Gallop, No JVD, No Murmur, No Rub GI/Abdominal: Normal Bowel Sounds, Soft, Non-Tender, No Distention, No Abnormal Bruit, No Mass, Pelvis Stable (Male) Exam: Deferred Rectal (Males) Exam: Deferred Back Exam: Muscle Spasm (To left). No: Paraspinal Tenderness, Vertebral Tenderness Extremities: Normal Range of Motion, No Pedal Edema, Normal Capillary Refill, Leg Pain (To left hip and left upper leg), Other (Weakness to left lower extremity). No: Claire's Sign, Increased Warmth, Mottled, Pallor, Redness Neurological: Alert, Normal Mood/Affect, Normal Dorsiflexion, CN II-XII Intact, Normal Plantar Flexion, Normal Gait, Normal Reflexes, No Motor/Sensory Deficits, Oriented x 3, Straight Leg Raise (L), Straight Leg Raise (R), Difficulty Walking (Walker for ambulation normally; Pain radiating from left back with ambulation). No: Saddle Anesthesia Psychiatric: Normal Affect, Normal Mood Skin Exam: Warm, Dry, Intact, Normal Color, No Rash. No: Cyanosis, Jaundice, Mottled, Pallor Course - Vital Signs Last Recorded V/S: Last Vital Signs Temp 97.8 F 04/27/21 08:45 Pulse 75 04/27/21 08:45 Resp 16 04/27/21 08:45 BP 133/81 04/27/21 08:45 Pulse Ox 97 04/27/21 08:45 - Orders/Labs/Meds Labs: Laboratory Tests 04/27/21 Range/Units 12:42 Urine Color Yellow (YELLOW) Urine Appearance Clear (CLEAR) Urine pH 5.5 (5.0-9.0) Ur Specific [place] 1.025 (1.005-1.030) Urine Protein Negative (NEGATIVE) Urine Glucose (UA) Negative (NEGATIVE) Urine Ketones Negative (NEGATIVE) Urine Occult Blood Negative (NEGATIVE) Urine Nitrite Negative (NEGATIVE) Urine Bilirubin Negative (NEGATIVE) Urine Urobilinogen 0.2 (0.2-1.0) mg/dL Ur Leukocyte Esterase Negative (NEGATIVE) Meds: Medications Discontinued Medications Generic Name Dose Route Start Last Admin Trade Name Freq PRN Reason Stop Dose Admin Orphenadrine Citrate 60 mg 04/27/21 10:02 04/27/21 10:10 Orphenadrine 60 Mg/2 Ml Inj IM 04/27/21 10:03 60 mg ONETIME ONE Administration Tramadol HCl 50 mg 04/27/21 09:15 04/27/21 09:29 Tramadol 50 Mg Tab PO 04/27/21 09:16 50 mg ONETIME ONE Administration - Radiology Interpretation Free Text/Narrative:: [facility] Final Radiology Report Call: [phone] assistance Online chat: [email or web address] Name: ROBB COOLEY Age: 65Years M Date: 04/27/2021 SSN: -- : [id number] Study: CR LUMBAR SPINE 2 OR 3V Requesting Physician: Janae Kirk Images: 3 Addl Studies: Provided Clinical History: Left lower back pain Contrast: Contrast Medium: Contrast Amount: Contrast Method: CONFIDENTIALITY STATEMENT This report is intended only for use by the referring physician, and only in accordance with law. If you received this in error, call [phone]. Page 1 of 1 PROCEDURE INFORMATION: Exam: XR Lumbosacral Spine Exam date and time: 04/27/2021 9:43 AM Age: 65 years old Clinical indication: Low back pain; Additional info: Left lower back pain TECHNIQUE: Imaging protocol: XR of the lumbosacral spine. Views: 2 or 3 views. COMPARISON: No relevant prior studies available. FINDINGS: Bones/joints: Disc degeneration at L5-S1. Disc degeneration T11-T12 and T12-L1. Anterior wedging T12. Soft tissues: Unremarkable. Intraperitoneal space: Cholecystectomy. IMPRESSION: Multilevel degenerative changes. Small Thank you for allowing us to participate in the care of your patient. Dictated and Authenticated by: Rizwan Frias MD 04/27/2021 11:12 AM Central Time ([place] & [place]) - Re-Assessments/Exams Free Text/Narrative Re-Assessment/Exam: 04/27/21 Orphenadrine 60mg IM and Tramadol 50mg PO administered. Xray lumbar spine obtained. UA sent. Patient verbalized marked improvement in pain following medication administration. Findings of examination, lab work, and imaging reviewed with patient and his brother. Will treat acute muscle spasm with cyclobenzaprine. Discussed supportive cares for muscle spasm. Patient instructed to follow up with primary care provider. Red flag signs and symptoms which would warrant reevaluation reviewed. Patient verbalized understanding and agreement with the plan of care. Departure - Departure Time of Disposition: 12:53 Disposition: Home, Self-Care 01 Condition: Good Clinical Impression: Muscle spasm of back, Degenerative disc disease at L5-S1 level, Thoracic degenerative disc disease - Discharge Information *PRESCRIPTION DRUG MONITORING PROGRAM REVIEWED*: Not Applicable *COPY OF PRESCRIPTION DRUG MONITORING REPORT IN PATIENT RONNIE: Not Applicable Instructions: Muscle Strain, [id number], Degenerative Disk Disease Referrals: Joya Mcclelland NP [Primary Care Provider] - Forms: ED Department Discharge Additional Instructions: Rx: cyclobenzaprine 1.) You may take ibuprofen (Advil/Motrin) 400mg every six hours, as pain and swelling persists. You may also take acetaminophen (Tylenol) 650mg every six hours, as pain persists. You may stagger these medications so you are receiving a dose every three hours. 2.) You may apply heat to the back as spasm continues; 20 minutes, every hour. 3.) Follow up with primary care provider regarding today's visit. Sepsis Event Note (ED) - Evaluation Sepsis Screening Result: No Definite Risk
[2021-04-27] MEDS ORDERED: Orphenadrine 60 MG/2 ML Inj IM ONE (10:02)
--- NOTE | 2021-04-27 11:12 | CR ---
PROCEDURE INFORMATION: Exam: XR Lumbosacral Spine Exam date and time: 04/27/2021 9:43 AM Age: 65 years old Clinical indication: Low back pain; Additional info: Left lower back pain TECHNIQUE: Imaging protocol: XR of the lumbosacral spine. Views: 2 or 3 views. COMPARISON: No relevant prior studies available. FINDINGS: Bones/joints: Disc degeneration at L5-S1. Disc degeneration T11-T12 and T12-L1. Anterior wedging T12. Soft tissues: Unremarkable. Intraperitoneal space: Cholecystectomy. IMPRESSION: Multilevel degenerative changes. Small
== END 2021-04-27 13:09 | disposition home or self-care (01) ==
LOC: DL.ED 08:21
DX: M51.36 Other intervertebral disc degeneration, lumbar region (principal); M51.34 Other intervertebral disc degeneration, thoracic region; M62.830 Muscle spasm of back; E78.00 Pure hypercholesterolemia, unspecified; I10 Essential (primary) hypertension; E11.9 Type 2 diabetes mellitus without complications; Z86.73 Personal history of transient ischemic attack (TIA), and cerebral infarction without residual deficits; Z79.01 Long term (current) use of anticoagulants; Z79.84 Long term (current) use of oral hypoglycemic drugs; Z79.02 Long term (current) use of antithrombotics/antiplatelets; Z88.7 Allergy status to serum and vaccine
CPT/HCPCS: 72100; 81003; 96372; 99283; A9270; J2360

== ENCOUNTER 2023-10-21 09:17 | Emergency (ER) | payer MEDICARE ==
[2023-10-21 10:40] LABS: BASOPHILS PERCENT AUTO 0.4 % (0.0-1.0); EOSINOPHILS PERCENT AUTO 0.4 % (1.0-3.0); HEMATOCRIT 39.3 % (40.0-54.0); HEMOGLOBIN 13.4 g/dL (14.0-18.0); LYMPHOCYTES PERCENT AUTO 5.1 % (20.5-50.1); MEAN CORPUSCULAR HGB CONC 34.1 g/dL (33.0-35.0); MEAN CORPUSCULAR VOLUME 87.9 fL (80-100); MONOCYTES PERCENT AUTO 5.1 % (2-8); PLATELET COUNT,PLT 202 10^3/uL (150-450); RED BLOOD CELL COUNT 4.47 10^6/uL (4.6-6.2); WHITE BLOOD CELL COUNT,WBC 11.5 10^3/uL (5.0-10.0)
[2023-10-21 10:48] LABS: A/G RATIO 1.1; ALANINE AMINOTRANSFERASE,ALT 39 U/L (16-63); ALBUMIN 3.6 g/dL (3.4-5.0); ALKALINE PHOSPHATASE 56 U/L (46-116); ANION GAP 14.4 mEq/L (7-13); ASPARTATE AMNIOTRANSFERASE,AST 19 U/L (15-37); BILIRUBIN TOTAL 1.1 mg/dL (0.2-1.0); BLOOD UREA NITROGEN,BUN 16 mg/dL (7-18); BUN/CREATININE RATIO 12.5 (No establ ref range); CALCIUM 8.8 mg/dL (8.5-10.1); CARBON DIOXIDE,CO2 26 mmol/L (21-32); CHLORIDE,CL 103 mmol/L (98-107); CREATININE 1.28 mg/dL (0.70-1.30); GLUCOSE RANDOM 208 mg/dL (70-99); POTASSIUM,K 4.4 mmol/L (3.5-5.1); SODIUM,NA 139 mmol/L (136-145)
[2023-10-21 10:49] LABS: ESTIMATED GFR 61 mL/min (>=60)
[2023-10-21 10:55] LABS: INR 2.1 (0.9-1.2); PROTHROMBIN TIME 21.2 SEC (9.0-12.0)
== END 2023-10-21 11:42 | disposition home or self-care (01) ==
LOC: DL.ED 09:17
DX: R42 Dizziness and giddiness (principal); E78.00 Pure hypercholesterolemia, unspecified; I10 Essential (primary) hypertension; E11.9 Type 2 diabetes mellitus without complications; Z79.899 Other long term (current) drug therapy; Z88.7 Allergy status to serum and vaccine; Z79.01 Long term (current) use of anticoagulants; Z79.02 Long term (current) use of antithrombotics/antiplatelets
CPT/HCPCS: 36415; 80053; 82947; 84484; 85025; 85610; 93005; 99283; 99285